=== PATIENT | male | born 1985 | race Caucasian/White ===

== ENCOUNTER 2019-11-08 20:23 | Emergency (ER) | payer BC, OTHER ==
--- NOTE | 2019-11-08 21:05 | EDM.PDOC ---
ED HPI GENERAL MEDICAL PROBLEM - General Chief Complaint: Abdominal Pain Stated Complaint: SIDE PAIN Time Seen by Provider: 11/08/19 20:37 Source of Information: Reports: Patient History Limitations: Reports: No Limitations - History of Present Illness INITIAL COMMENTS - FREE TEXT/NARRATIVE: Mr. Camacho is a very pleasant 34-year-old man with a past medical history significant for untreated dyslipidemia, who states that he was driving around noon today, when he developed right lower quadrant pressure. It resolved when he moved, but recurred. He states that he then developed a sensation of warmness inside his abdomen. He states that something feels "not right". He states that he is currently feeling a slight pressure it is lower right abdomen. It is a discomfort, not a pain. It does not radiate. He states that he feels worse if he is standing, but better if he is walking. No recent fever, nausea, vomiting, constipation, diarrhea, or urinary symptoms. He patient states that he has had similar pressure sensation on off for about 5 years, but it usually resolves fairly quickly, and he has not previously sought medical evaluation for it. Patient denies recent illness. The patient does not have a PCP. He has not received an influenza vaccine this season, and declined an offer for one here [facility]. Right Abdomen Pain Score (Numeric/FACES): 1 - Related Data Allergies Allergy/AdvReac Type Severity Reaction Status Date / Time No Known Allergies Allergy Verified 11/08/19 20:31 Home Meds: Home Meds . [No Known Home Meds] 11/08/19 [History] Past Medical History HEENT History: Reports: Other (See Below) (Poor dentition) Cardiovascular History: Reports: High Cholesterol (untreated) Social & Family History - Tobacco Use Smoking Status *Q: Current Every Day Smoker Tobacco Use Within Last Twelve Months: Vaping (nicotine) Years of Tobacco use: 16 Packs/Tins Daily: 1 Packs/Tins Daily Comment: Down from 3 ppd - Caffeine Use Caffeine Use: Reports: Coffee, Energy Drinks, Soda - Alcohol Use Alcohol Use History: No Date/Time of Last Drink Comment: Stopped drinking 2016 - Recreational Drug Use Recreational Drug Use: Yes Drug Use in Last 12 Months: No Recreational Drug Type: Reports: Marijuana/Hashish (last smoked as a teenager), Methamphetamine (last smoked 2015) - Living Situation & Occupation Living situation: Reports: Single, Other (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 ED EXAM, GI/ABD - Physical Exam Exam: See Below Exam Limited By: No Limitations General Appearance: Alert, WD/WN, No Apparent Distress Eyes: Bilateral: Normal Appearance, EOMI Ears: Normal External Exam, Hearing Grossly Normal Nose: Normal Inspection Throat/Mouth: Normal Inspection, Normal Lips, Normal Voice, No Airway Compromise Head: Atraumatic, Normocephalic Neck: Normal Inspection, Full Range of Motion Respiratory/Chest: No Respiratory Distress, Lungs Clear, Normal Breath Sounds, No Accessory Muscle Use Cardiovascular: Normal Peripheral Pulses, Regular Rate, Rhythm, No Edema, No Gallop, No JVD, No Murmur, No Rub GI/Abdominal Exam: Normal Bowel Sounds (active!), Soft, Non-Tender (including the RLQ), No Organomegaly, No Distention, No Abnormal Bruit, No Mass (Male) Exam: Deferred Rectal (Males) Exam: Deferred Back Exam: Normal Inspection, Full Range of Motion. No: CVA Tenderness (L), CVA Tenderness (R) Extremities: Normal Inspection, Normal Range of Motion, No Pedal Edema, Normal Capillary Refill Neurological: Alert, Oriented, Normal Cognition, No Motor/Sensory Deficits Psychiatric: Normal Affect Skin Exam: Warm, Dry, Intact, Normal Color, No Rash Course - Vital Signs Last Recorded V/S: Last Vital Signs Temp 36.9 C 11/08/19 20:28 Pulse 77 11/08/19 20:28 Resp 16 11/08/19 20:28 BP 139/78 11/08/19 20:28 Pulse Ox 99 11/08/19 20:28 - Re-Assessments/Exams Free Text/Narrative Re-Assessment/Exam: 11/08/19 20:57 The patient's physical examination is completely benign. He has active bowel sounds, and no tenderness whatsoever to his right lower quadrant. If the patient is suffering from appendicitis, it is really, really early appendicitis - too early to recommend a CT scan, as it would unlikely find any inflammation. I'm therefore not recommending any testing at this time, but I am recommending that he return to the ED for reevaluation if his symptoms worsen. The patient is agreeable. Departure - Departure Time of Disposition: 20:58 Disposition: Home, Self-Care 01 Condition: Good Clinical Impression: Right lower quadrant abdominal pain of unknown etiology - Discharge Information *PRESCRIPTION DRUG MONITORING PROGRAM REVIEWED*: Not Applicable *COPY OF PRESCRIPTION DRUG MONITORING REPORT IN PATIENT TIMOTHY: Not Applicable Referrals: PCP,None [Primary Care Provider] - Additional Instructions: You were seen in the emergency room for lower right abdominal pressure and discomfort. On examination, no abnormalities were found. No testing was recommended. If your symptoms worsen, we recommend that you return to the ER for reevaluation. Sepsis Event Note - Evaluation Sepsis Screening Result: No Definite Risk - Focused Exam Vital Signs: Vital Signs Temp Pulse Resp BP Pulse Ox 11/08/19 20:28 36.9 C 77 16 139/78 99 Date Exam was Performed: 11/08/19 Time Exam was Performed: 20:57
== END 2019-11-08 21:09 | disposition home or self-care (01) ==
LOC: JD.ED 20:23
CPT/HCPCS: 99282; 99283